=== PATIENT | male | born 1940 | race Caucasian/White ===

== ENCOUNTER 2018-10-23 17:04 | Emergency (ER) | payer MEDICARE, BC ==
[~2018-10-23] VITALS: Ht 177.8 cm; Wt 88.0 kg
[~2018-10-23 17:04] MED LIST: ONDA4TAB6 PO
[2018-10-23 17:30] VITALS: BP 197/88
[2018-10-23] MEDS ORDERED: ipratropium/albuterol 3ml nebule NEB ONE (19:15)
[2018-10-23] MEDS ORDERED: ALBU18HF2 IH (19:57)
== END 2018-10-23 20:13 | disposition home or self-care (01) ==
LOC: ER 17:05
DX: R21 Rash and other nonspecific skin eruption (principal); J06.9 Acute upper respiratory infection, unspecified; I48.91 Unspecified atrial fibrillation; F17.210 Nicotine dependence, cigarettes, uncomplicated; Z87.01 Personal history of pneumonia (recurrent)
CPT/HCPCS: 71046; 94640; 94760; 99283

== ENCOUNTER 2021-11-23 09:47 | Emergency (ER) | payer MEDICARE, BC ==
[~2021-11-23] VITALS: Ht 180.3 cm; Wt 113.0 kg
[~2021-11-23 09:47] MED LIST changes: +ALBU18HF2 IH
[2021-11-23 09:55] VITALS: BP 158/83
[2021-11-23] MEDS ORDERED: LIDOcaine 1% W/epiNEPHrine 1:100,000 20ml vial SQ ONE (11:20)
== END 2021-11-23 13:39 | disposition home or self-care (01) ==
LOC: ER 09:49
DX: L76.22 Postprocedural hemorrhage of skin and subcutaneous tissue following other procedure (principal); I48.91 Unspecified atrial fibrillation; Z79.01 Long term (current) use of anticoagulants; Z85.820 Personal history of malignant melanoma of skin; Z79.899 Other long term (current) drug therapy; Z87.440 Personal history of urinary (tract) infections; Y84.8 Other medical procedures as the cause of abnormal reaction of the patient, or of later complication, without mention of misadventure at the time of the procedure; Y78.0 Diagnostic and monitoring radiological devices associated with adverse incidents; Y92.89 Other specified places as the place of occurrence of the external cause
CPT/HCPCS: 12001; 99283; 99284